=== PATIENT | female | born 2000 | race Two or more races ===

== ENCOUNTER 2021-04-26 15:06 | Outpatient (CLI) | payer OTHER ==
--- NOTE | 2021-04-26 17:07 | Ultrasound Report ---
PROCEDURE: Pelvic w/Transvaginal INDICATIONS: IUD SURVEILLANCE TECHNIQUE: Real-time scanning was performed of the pelvic organs, with image documentation. Additional endovagi nal scanning was necessary due to incomplete visualization of the adnexal and endometrial structures by transabdominal scanning. COMPARISON: None. FINDINGS: No pathologic free abdominal or pelvic fluid. Uterus: Anteverted bicornuate uterus is seen measures 8.6 x 3.4 x 5.5 cm in size. Myometrium is heter ogeneous in echotexture, no discrete uterine fibroid is seen. Right endometrium measures 3.9 mm in co mbined thickness. Left endometrium measures 4.5 mm in combined thickness. No gross endometrial mass o r fluid. Intrauterine device is noted within the right horn of the uterus and appears to be slightly low in position however this is likely due to bicornuate configuration of uterus. Ovaries: Right ovary measures 3.6 x 2 x 2.1 cm in size and is within normal limits. Left ovary measu res 3.6 x 1.4 x 2.4 cm in size and is within normal limits. IMPRESSION: 1. Bicornuate uterus with intrauterine device seen in right horn endometrium and is slightly low in p osition. This is most likely due to bicornuate configuration of the uterus. No endometrial mass or fl uid is seen. No discrete uterine fibroid. 2. Normal-appearing bilateral ovaries. Reviewed by: Karthik Vann MD on 04/26/2021 5:05 PM PST Approved by: Karthik Vann MD on 04/26/2021 5:05 PM PST Station ID: [id number]
== END 2021-04-26 15:07 | disposition home or self-care (01) ==
LOC: DI 15:06
PROVIDERS: ATTEND Obstetrics & Gynecology
DX: Z30.431 Encounter for routine checking of intrauterine contraceptive device (principal)

== ENCOUNTER 2021-07-01 08:00 | Outpatient (CLI) | payer OTHER | END 2021-07-01 23:59 | LOC: LAB.R 08:00 | PROVIDERS: ATTEND Physician Assistant Medical | DX: B34.9 Viral infection, unspecified (principal); Z20.822 Contact with and (suspected) exposure to COVID-19 ==

== ENCOUNTER 2021-09-20 08:00 | Outpatient (CLI) | payer OTHER ==
[2021-09-22 05:10] LABS: HCV AB 0.1 s/co ratio (0.0-0.9); HIV SCREEN 4TH GENERATION Non Reactive (Non Reactive)
== END 2021-09-20 23:59 | disposition home or self-care (01) ==
LOC: LAB.N 08:00
PROVIDERS: ATTEND Nurse Practitioner
DX: S61.031A Puncture wound without foreign body of right thumb without damage to nail, initial encounter (principal)
CPT/HCPCS: 86803; 87389

== ENCOUNTER 2022-01-17 08:00 | Outpatient (CLI) | payer OTHER ==
[2022-01-17 20:03] LABS: BACTERIAL VAGINOSIS DNA POSITIVE (NEGATIVE); CANDIDA GLABRATA DNA NEGATIVE (NEGATIVE); CANDIDA GROUP DNA NEGATIVE (NEGATIVE); CANDIDA KRUSEI DNA NEGATIVE (NEGATIVE); TRICHOMONAS VAGINALIS DNA NEGATIVE (NEGATIVE)
[2022-01-17 20:33] LABS: CHLAMYDIA TRACHOMATIS DNA NEGATIVE (NEGATIVE); NEISSERIA GONORRHOEAE DNA NEGATIVE (NEGATIVE)
== END 2022-01-17 23:59 | disposition home or self-care (01) ==
LOC: LAB.N 08:00
PROVIDERS: ATTEND Physician Assistant
DX: R30.0 Dysuria (principal)
CPT/HCPCS: 81514; 87491; 87591; 87661

== ENCOUNTER 2022-05-30 09:45 | Outpatient (CLI) | payer OTHER ==
[2022-06-01 00:07] LABS: HCV AB Non Reactive (Non Reactive); HIV SCREEN 4TH GENERATION Non Reactive (Non Reactive)
== END 2022-05-30 10:00 | disposition home or self-care (01) ==
LOC: LAB.N 09:45
PROVIDERS: ATTEND Physician Assistant
DX: S61.233A Puncture wound without foreign body of left middle finger without damage to nail, initial encounter (principal); Y99.9 Unspecified external cause status
CPT/HCPCS: 36415; 86704; 86803; 87389

== ENCOUNTER 2023-03-04 08:00 | Outpatient (CLI) | payer OTHER | END 2023-03-04 23:59 | disposition home or self-care (01) | LOC: LAB.N 08:00 | PROVIDERS: ATTEND Nurse Practitioner | DX: N39.0 Urinary tract infection, site not specified (principal) | CPT/HCPCS: 87086; 87181 ==

== ENCOUNTER 2023-05-17 21:30 | Emergency (ER) | payer OTHER ==
[2023-05-17 21:43] VITALS: O2SAT 99
[2023-05-17 22:06] LABS: BILIRUBIN,URINE NEGATIVE (NEGATIVE); GLUCOSE, URINE (UA) NEGATIVE (NEGATIVE); KETONES,URINE (UA) TRACE mg/dL (NEGATIVE); LEUKOCYTE ESTERASE, URINE LARGE (NEGATIVE); NITRITE,URINE NEGATIVE (NEGATIVE); OCCULT BLOOD,URINE MODERATE (NEGATIVE); PH,URINE 5.5 PH (5.0-7.5); PROTEIN,URINE NEGATIVE (NEGATIVE); UROBILINOGEN,URINE 0.2 (NORMAL) E.U./dL (NORMAL)
[2023-05-17 22:07] LABS: CLARITY,URINE CLOUDY (CLEAR)
[2023-05-17 22:08] LABS: HCG UR QUAL NEGATIVE
[2023-05-17 22:16] LABS: WBC,URINE >25 /HPF (0-5)
[2023-05-17 22:17] LABS: BACTERIA,URINE Moderate /HPF (None Seen); MUCUS,URINE Moderate Strands; SQUAMOUS EPITHELIAL CELL,UR MANY Squamous (<= Few)
[2023-05-17] MEDS: HYDROcod/ACETAM 5/325 MG TABLET PO STA (22:43)
[2023-05-17] MEDS: IBUPROFEN 800 MG TABLET PO STA (22:43)
--- NOTE | 2023-05-17 23:45 | ED Physician Documentation ---
History of Present Illness - Stated complaint Stated Complaint: - Chief complaint Chief Complaint: General - History obtained from History obtained from: Patient - Additonal information Additional information: The pt comes to the ED for CC of feeling "raw" in her perineal area. She denies any intravaginal sx, and no pelvic pain. She's had a little more discharge than usual, but not foul-smelling. She denies fevers. She is sexually monogamous with her , who has accompanied her. No STD hx. PD PAST MEDICAL HISTORY - Present Medications Home Medications: Ambulatory Orders Medication Instructions Recorded Confirmed No Known Home Medications 05/17/23 05/17/23 - Allergies Allergies/Adverse Reactions: Allergies Allergy/AdvReac Type Severity Reaction Status Date / Time No Known Drug Allergies Allergy Verified 05/17/23 21:39 PD ED PE NORMAL - Vitals Vital signs reviewed: Yes - General General: Alert and oriented X 3, No acute distress, Well developed/nourished - HEENT HEENT: Atraumatic, PERRL, EOMI, Moist mucous membranes - Neck Neck: Supple, no meningeal sign - Respiratory Respiratory: No respiratory distress - Abdomen Abdomen: Normal bowel sounds, Soft, Non tender, Non distended - Female Female : [employer] present ( and nurse), Other (Normal female genitalia, with area of increased erythema and mild abrasion between vulva and labia majora on the R. Moderate, nonmalodorous white d/c with occasional clumping. Normal cervix. No CMT, adnexal tend, or mass.) - Derm Derm: Warm and dry - Extremities Extremities: No deformity - Neuro Neuro: Alert and oriented X 3 - Psych Psych: Normal mood, Normal affect Results - Vitals Vitals: Oxygen O2 Source Room air - Labs Labs: Microbiology 05/17/23 22:30 Wet Prep - Final Genital - Vaginal Laboratory Tests 05/17/23 05/17/23 05/17/23 21:30 21:30 23:10 Urine Color YELLOW Urine Clarity CLOUDY Urine pH 5.5 Ur Specific [place] >=1.030 H Urine Protein NEGATIVE Urine Glucose (UA) NEGATIVE Urine Ketones TRACE Urine Occult Blood MODERATE H Urine Nitrite NEGATIVE Urine Bilirubin NEGATIVE Urine Urobilinogen 0.2 (NORMAL) Ur Leukocyte Esterase LARGE H Urine RBC 11-25 H Urine WBC >25 H Ur Squamous Epith Cells MANY Squamous H Urine Bacteria Moderate H Urine Mucus Moderate Strands Ur Microscopic Review INDICATED Urine Culture Comments NOT INDICATED Urine HCG, Qual NEGATIVE Chlam trachomat DNA PCR NEGATIVE N.gonorrhoeae DNA (PCR) NEGATIVE T. vaginalis (PCR) NEGATIVE PD Medical Decision Making - ED course Complexity details: considered differential, d/w patient ED course: I d/w pt that at this point, I am most suspicious of kyle, but since pt does not feel it is like her previous candidal infections, we will await testing. I have collected swabs for wet mount, GC, chlamydia, and trichomonas. We have discussed follow-up and the usual indications for return. Departure - Departure Disposition: Home, Self Care Clinical Impression: Vaginal discharge Condition: Stable Comments: At this point in time, it is not clear exactly what is causing your vaginal symptoms. We have sent several swabs to the lab and these are all pending at this time. If you come back positive for anything, we will let you know, and we will plan to send an appropriate prescription in to the [facility] pharmacy for you. For now, there is no evidence of a urinary tract infection, And we will hold off on any other treatment until we know for sure what you have tested positive for. Please schedule follow-up with your primary doctor as well. Forms: PCP List Discharge Date/Time: 05/17/23 23:51
[2023-05-17 23:57] VITALS: BP 115/81
[2023-05-18 01:59] LABS: CHLAMYDIA TRACHOMATIS DNA NEGATIVE (NEGATIVE); NEISSERIA GONORRHOEAE DNA NEGATIVE (NEGATIVE); TRICHOMONAS VAGINALIS DNA NEGATIVE (NEGATIVE)
== END 2023-05-17 23:51 | disposition home or self-care (01) ==
LOC: ED 21:30
DX: S30.814A Abrasion of vagina and vulva, initial encounter (principal); X58.XXXA Exposure to other specified factors, initial encounter; N89.8 Other specified noninflammatory disorders of vagina
CPT/HCPCS: 81001; 81025; 87210; 87252; 87491; 87591; 87661; 99283; A9270; 81003; 87086

== ENCOUNTER 2023-11-11 13:35 | Emergency (ER) | payer OTHER ==
[2023-11-11 14:06] LABS: BASOPHILS # (AUTO) 0.1 10^3/uL (0.0-0.1); BASOPHILS % (AUTO) 0.6 %; EOSINOPHILS # (AUTO) 0.1 10^3/uL (0.0-0.7); EOSINOPHILS % (AUTO) 0.9 %; HCT - HEMATOCRIT 40.4 % (37.0-47.0); HGB - HEMOGLOBIN 14.1 g/dL (12.0-16.0); LYMPHOCYTES % (AUTO) 19.3 %; MEAN CORPUSCULAR HEMOGLOBIN 29.6 pg (27.0-31.0); MEAN CORPUSCULAR HGB CONC 34.9 g/dL (32.0-36.0); MEAN CORPUSCULAR VOLUME 84.9 fL (81.0-99.0); MEAN PLATELET VOLUME 9.9 fL (7.9-10.8); MONOCYTES % (AUTO) 10.3 %; NEUTROPHILS # (AUTO) 6.9 10^3/uL (1.5-6.6); NEUTROPHILS % (AUTO) 68.6 %; PLT - PLATELET COUNT 387 10^3/uL (130-450); RED BLOOD COUNT 4.76 10^6/uL (4.20-5.40); RED CELL DISTRIBUTION WIDTH 12.5 % (12.0-15.0); WHITE BLOOD COUNT 10.1 x10^3/uL (4.8-10.8)
[2023-11-11 14:08] LABS: BILIRUBIN,URINE NEGATIVE (NEGATIVE); GLUCOSE, URINE (UA) NEGATIVE (NEGATIVE); KETONES,URINE (UA) NEGATIVE (NEGATIVE); LEUKOCYTE ESTERASE, URINE NEGATIVE (NEGATIVE); NITRITE,URINE NEGATIVE (NEGATIVE); OCCULT BLOOD,URINE NEGATIVE (NEGATIVE); PROTEIN,URINE NEGATIVE (NEGATIVE); UROBILINOGEN,URINE 0.2 (NORMAL) E.U./dL (NORMAL)
[2023-11-11 14:09] LABS: CLARITY,URINE CLEAR (CLEAR); HCG UR QUAL NEGATIVE
--- NOTE | 2023-11-11 14:09 | ED Physician Documentation ---
History of Present Illness - Stated complaint Stated Complaint: LOWER ABD PX,NAUSEA - Chief complaint Chief Complaint: Abd Pain - History obtained from History obtained from: Patient - History of Present Illness Timing: Prior to arrival - Additonal information Additional information: Patient is a 23-year-old female presenting to the emergency department with rig ht lower abdominal pain that started around noon and has progressively gotten worse. She notes pain started in her right upper abdomen and radiates down to her lower abdomen and to the middle of her abdomen. She notes severe onset of pain and nausea with her symptoms. She denies any history of abdominal surgeries no history of appendicitis. She denies any vomiting episodes and she took 1000 mg of Tylenol prior to arrival. Patient notes pain started while she was having intercourse and she had to stop due to severe pain. Patient notes she is actively trying to get with her last normal menstrual period 10/22. She has not had any positive test. She denies any previous history of ovarian cysts. She denies ever having the symptoms before. She denies any fevers chills chest pain or shortness of breath associated with her symptoms. PD PAST MEDICAL HISTORY - Past Medical History Past Medical History: Yes - Past Surgical History Past Surgical History: No - Present Medications Home Medications: Ambulatory Orders Medication Instructions Recorded Confirmed No Known Home Medications 05/17/23 05/17/23 - Allergies Allergies/Adverse Reactions: Allergies Allergy/AdvReac Type Severity Reaction Status Date / Time No Known Drug Allergies Allergy Verified 11/11/23 13:37 - Social History Does the pt smoke?: No Smoking Status: Never smoker Does the pt drink ETOH?: Yes ETOH Use: Beer Does the pt have substance abuse?: No - Immunizations Immunizations are current?: Yes - POLST Patient has POLST: No PD ED PE NORMAL - General General: Alert and oriented X 3 - HEENT HEENT: Atraumatic - Neck Neck: Supple, no meningeal sign - Cardiac Cardiac: RRR, No murmur, No gallop, No rub - Respiratory Respiratory: No respiratory distress, Clear bilaterally - Abdomen Abdomen: Normal bowel sounds, Soft, Non distended, Other (Reproducible right lower quadrant tenderness and midline abdominal tenderness on examination with guarding on physical exam. No significant rebound or Rovsing signs on exam with active bowel sounds on auscultation.) - Female Female : Deferred - Rectal Rectal: Deferred - Back Back: No CVA TTP - Derm Derm: Normal color - Neuro Neuro: Alert and oriented X 3 - Psych Psych: Normal mood Results - Vitals Vitals: Vital Signs - 24 hr 11/11/23 11/11/23 11/11/23 13:37 13:41 15:41 Temperature 36.8 C Heart Rate 80 70 72 Respiratory 16 16 19 Rate Blood Pressure 118/69 128/80 126/78 O2 Saturation 99 100 100 11/11/23 11/11/23 17:00 18:48 Temperature Heart Rate 60 Respiratory 18 Rate Blood Pressure 95/57 L 112/70 O2 Saturation 100 Oxygen O2 Source Room air - Labs Labs: Laboratory Tests 11/11/23 11/11/23 11/11/23 13:59 13:59 13:59 WBC 10.1 RBC 4.76 Hgb 14.1 Hct 40.4 MCV 84.9 MCH 29.6 MCHC 34.9 RDW 12.5 Plt Count 387 MPV 9.9 Neut # (Auto) 6.9 H Lymph # (Auto) 2.0 Worth # (Auto) 1.0 Eos # (Auto) 0.1 Baso # (Auto) 0.1 Absolute Nucleated RBC 0.00 Nucleated RBC % 0.0 Sodium 138 Potassium 3.6 Chloride 104 Carbon Dioxide 28 Anion Gap 6.0 BUN 9 Creatinine 0.6 Estimated GFR (MDRD) 124 Glucose 74 Calcium 9.5 Total Bilirubin 0.5 AST 16 ALT 16 Alkaline Phosphatase 61 Total Protein 7.2 Albumin 4.1 Globulin 3.1 Albumin/Globulin Ratio 1.3 Lipase 25 Beta HCG, Quant Urine Color YELLOW Urine Clarity CLEAR Urine pH 6.0 Ur Specific [place] >=1.030 H Urine Protein NEGATIVE Urine Glucose (UA) NEGATIVE Urine Ketones NEGATIVE Urine Occult Blood NEGATIVE Urine Nitrite NEGATIVE Urine Bilirubin NEGATIVE Urine Urobilinogen 0.2 (NORMAL) Ur Leukocyte Esterase NEGATIVE Ur Microscopic Review NOT INDICATED Urine Culture Comments NOT INDICATED Urine HCG, Qual NEGATIVE 11/11/23 14:00 WBC RBC Hgb Hct MCV MCH MCHC RDW Plt Count MPV Neut # (Auto) Lymph # (Auto) Worth # (Auto) Eos # (Auto) Baso # (Auto) Absolute Nucleated RBC Nucleated RBC % Sodium Potassium Chloride Carbon Dioxide Anion Gap BUN Creatinine Estimated GFR (MDRD) Glucose Calcium Total Bilirubin AST ALT Alkaline Phosphatase Total Protein Albumin Globulin Albumin/Globulin Ratio Lipase Beta HCG, Quant < 0.6 Urine Color Urine Clarity Urine pH Ur Specific [place] Urine Protein Urine Glucose (UA) Urine Ketones Urine Occult Blood Urine Nitrite Urine Bilirubin Urine Urobilinogen Ur Leukocyte Esterase Ur Microscopic Review Urine Culture Comments Urine HCG, Qual PD Medical Decision Making - ED course Complexity details: reviewed old records, reviewed results, re-evaluated patient ED course: Patient is a 23-year-old female presenting to the emergency department with right lower abdominal pain. Symptoms have been going on since around 12:00 pain started suddenly after patient was having intercourse and had to stop due to severe pain. She notes mild nausea with her symptoms but no vomiting episodes no fevers or chills. She notes pain has progressively gotten worse radiates from the middle of her lower abdomen to her right lower quadrant. No pain radiating to her back. Last normal menstrual period was 10/22. Patient notes she is actively trying to get at this time. She is unsure of status at this time. Vital stable on arrival. Physical exam shows normal cardiac and lung sounds on auscultation. Reproducible right lower quadrant tenderness with guarding but negative Rovsing sign and rebound on physical exam. Labs reassuring here in the emergency department negative test here in the emergency department given right-sided abdominal pain concern for possible appendicitis versus ruptured ovarian cyst versus ovarian torsion. Patient will be sent for CT scan given negative test at this time. Patient pain under control with Toradol here in the emergency department UA shows no signs of UTI CMP is unremarkable and no significant leukocytosis at this time. CT scan shows right ruptured ovarian cyst. No signs of persistent ovarian cyst or swelling around ovary concerning for decreased blood flow or ovarian torsion. Patient's pain resolved here in the emergency department with Toradol. She is eating and drinking no acute distress. Patient also incidentally had malaria in defect noted on CT scan patient was already aware of this finding. Instructed patient to rest at home take Tylenol and ibuprofen symptoms will slowly improve however if she develops worsening pain nausea vomiting or fevers immediately return to emergency department. Patient understands and is agreeable with this plan. Departure - Departure Disposition: 01 Home, Self Care Clinical Impression: Ruptured ovarian cyst, Abdominal pain, Cyst of ovary Condition: Good Comments: He was seen here in the emergency department for your abdominal pain. your workup here in the emergency department showed right ovarian cyst rupture. Your symptoms improved here in the emergency department you should go home rest take Tylenol and ibuprofen for any persistent pain follow-up with your [facility] [employer] in outpatient setting to ensure resolution of symptoms. Forms: PCP List
[2023-11-11 14:25] LABS: ALBUMIN 4.1 g/dL (3.2-5.5); ALBUMIN/GLOBULIN RATIO 1.3 (1.0-2.2); BILIRUBIN,TOTAL 0.5 mg/dL (0.2-1.0); CALCIUM 9.5 mg/dL (8.5-10.3); CREATININE 0.6 mg/dL (0.6-1.3); POTASSIUM 3.6 mmol/L (3.5-4.5); TOTAL PROTEIN 7.2 g/dL (6.4-8.9)
[2023-11-11] MEDS: KETOROLAC 15 MG/ML VIAL IVP STA (14:43)
[2023-11-11] MEDS ORDERED: iohexoL-300 100 ML VIAL ONE (15:06)
--- NOTE | 2023-11-11 18:27 | CT Report ---
PROCEDURE: Abdomen/Pelvis W INDICATIONS: severe right abdominal pain CONTRAST: 100ml omni 300 TECHNIQUE: After the administration of intravenous contrast, a CT scan of the abdomen and pelvis was performed. Images were recorded and evaluated at appropriate window settings. Reformats: coronal and sagittal. F or radiation dose reduction, the following was used: automated exposure control, adjustment of mA and /or kV according to patient size. COMPARISON: None. FINDINGS: Image quality: Diagnostic. Lower chest: Unremarkable. Liver: No solid mass. Gallbladder: Normal. Biliary tree: No intrahepatic or extrahepatic dilation, accounting for age. Spleen: No splenomegaly. Pancreas: No pancreatic ductal dilation. Adrenals: No adrenal nodule. Kidneys and ureters: No hydronephrosis. No renal cystic lesion which requires follow up. No solid mas s. Stomach, bowel and peritoneum: No gastric or small bowel dilation. No abnormal wall thickening. No pa thologic free fluid. The appendix is normal. There is small amount of free fluid distal to the cecum and superior to the right ovary without associated lymphadenopathy. Lymph nodes: No central or retroperitoneal adenopathy. Vessels: No infrarenal aortic aneurysm. Patent portal vein. 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 Otherwise normal. Bladder: No abnormal wall thickening, accounting for underdistention. Pelvic lymph nodes: No pelvic adenopathy by size criteria. Bones: No aggressive osseous abnormality. Other: No significant ventral or inguinal hernia. IMPRESSION: Right lower quadrant findings suggestive of ruptured right ovarian cyst. No other CT evidence for the etiology of the patient's symptoms. Specifically, no appendicitis, diverticulitis, urolithiasis, or obstruction. Reviewed by: Nery Hewitt MD on 11/11/2023 5:26 PM REBEL Approved by: Nery Hewitt MD on 11/11/2023 5:26 PM [place] Station ID: [id number]
[2023-11-11] MEDS: iohexoL-300 100 ML VIAL IVP ONE (18:31)
[2023-11-11 19:45] VITALS: BP 119/72; O2SAT 99
== END 2023-11-11 19:44 | disposition home or self-care (01) ==
LOC: ED 13:35
DX: N83.291 Other ovarian cyst, right side (principal)
CPT/HCPCS: 36415; 74177; 80053; 81003; 81025; 83690; 84702; 85025; 96374; 99284; Q9967; 81001; 87086